=== PATIENT | female | born 1980 | race Caucasian/White ===

== ENCOUNTER → 2016-06-11 | Outpatient (CLI) | payer MEDICAID ==
[~2016-06-11] MED LIST: ADDERALL20 MG PO; ALLEGRA ALLERG180 MG PO; LIDO2%GEL; NASONEX SPRAY17 GM NS; NEURONTIN100 MG/CAP PO; PROTONIX 40MG T40 MG PO; PROZAC 20MG20 MG PO; ROXICODONE 55 MG/TAB PO; SINGULAIR 110 MG/TAB PO; SYNTHROID0.175 MG PO; VALTREX1 GM PO
== END ==
LOC: BHSO 09:24
DX: F90.0 Attention-deficit hyperactivity disorder, predominantly inattentive type (principal)

== ENCOUNTER → 2016-08-07 | Outpatient (CLI) | payer MEDICAID | LOC: BHSO 09:04 | DX: F33.41 Major depressive disorder, recurrent, in partial remission (principal) ==

== ENCOUNTER → 2016-10-07 | Outpatient (CLI) | payer MEDICAID | LOC: BHSO 09:08 | DX: F90.0 Attention-deficit hyperactivity disorder, predominantly inattentive type (principal) ==

== ENCOUNTER → 2016-12-08 | Outpatient (CLI) | payer MEDICAID | LOC: BHSO 11:23 | DX: F90.0 Attention-deficit hyperactivity disorder, predominantly inattentive type (principal) ==

== ENCOUNTER → 2017-02-10 | Outpatient (CLI) | payer MEDICAID | LOC: BHSO 09:13 | DX: F90.0 Attention-deficit hyperactivity disorder, predominantly inattentive type (principal) ==

== ENCOUNTER → 2017-05-06 | Outpatient (CLI) | payer MEDICAID | LOC: BHSO 09:22 | DX: F90.0 Attention-deficit hyperactivity disorder, predominantly inattentive type (principal) ==

== ENCOUNTER → 2017-07-06 | Outpatient (CLI) | payer MEDICAID | LOC: BHSO 11:41 | DX: F90.0 Attention-deficit hyperactivity disorder, predominantly inattentive type (principal) | CPT/HCPCS: G0463 ==

== ENCOUNTER → 2017-08-07 | Outpatient (CLI) | payer MEDICAID | LOC: BHSO 10:15 | DX: F90.0 Attention-deficit hyperactivity disorder, predominantly inattentive type (principal) | CPT/HCPCS: G0463 ==

== ENCOUNTER → 2018-03-31 | Outpatient (CLI) | payer SELFPAY | LOC: BHSO 11:43 | DX: F90.0 Attention-deficit hyperactivity disorder, predominantly inattentive type (principal) | CPT/HCPCS: G0463 ==

== ENCOUNTER 2018-05-25 22:50 | Emergency (ER) | payer SELFPAY ==
[~2018-05-25] VITALS: Ht 167 cm; Wt 97.7 kg
[2018-05-25 23:00] VITALS: BP 130/84; PULSE 98; TEMP 97.2
== END 2018-05-26 00:43 | disposition left against medical advice (07) ==
LOC: COL.ER 22:50
DX: R19.7 Diarrhea, unspecified (principal); R11.10 Vomiting, unspecified

== ENCOUNTER → 2018-07-14 | Outpatient (CLI) | payer SELFPAY | LOC: BHSO 11:38 | DX: F90.0 Attention-deficit hyperactivity disorder, predominantly inattentive type (principal) | CPT/HCPCS: G0463 ==

== ENCOUNTER → 2019-01-28 | Outpatient (CLI) | payer SELFPAY | LOC: BHSO 10:44 | DX: F90.0 Attention-deficit hyperactivity disorder, predominantly inattentive type (principal) | CPT/HCPCS: G0463 ==

== ENCOUNTER → 2019-03-03 | Outpatient (CLI) | payer SELFPAY | LOC: BHSO 15:04 | DX: F90.0 Attention-deficit hyperactivity disorder, predominantly inattentive type (principal) | CPT/HCPCS: G0463 ==

== ENCOUNTER → 2019-04-07 | Outpatient (CLI) | payer SELFPAY | LOC: BHSO 15:48 | DX: F90.0 Attention-deficit hyperactivity disorder, predominantly inattentive type (principal) | CPT/HCPCS: G0463 ==

== ENCOUNTER → 2019-10-13 | Outpatient (CLI) | payer SELFPAY | LOC: BHSO 16:20 | DX: F33.41 Major depressive disorder, recurrent, in partial remission (principal) | CPT/HCPCS: G0463 ==

== ENCOUNTER 2021-04-11 15:00 | Day surgery (SDC) | payer OTHER ==
[~2021-04-11] VITALS: Ht 167.6 cm; Wt 103.5 kg
[2021-04-11] MEDS ORDERED: ADDERALL20 MG PO (16:37)
[2021-04-11] MEDS ORDERED: ADDERALL XR20 MG PO (16:38)
[2021-04-11] MEDS ORDERED: WELLBUTRIN XL300 M1 PO (16:40)
[2021-04-11] MEDS ORDERED: CATAPRES 0.1MG0.1 MG PO (16:42)
[2021-04-11] MEDS ORDERED: CYMBALTA 60MG60 MG PO (16:42)
[2021-04-11] MEDS ORDERED: LEVOXYL0.2 MG PO (16:43)
[2021-04-11] MEDS ORDERED: LITHIUM 30300 MG/CAP PO (16:44)
[2021-04-11] MEDS ORDERED: COZAAR 50MG50 MG/TAB PO (16:44)
[2021-04-11] MEDS ORDERED: ONE-A-DAY ESSE1 EACH PO (16:45)
[2021-04-11] MEDS ORDERED: PROTONIX 40MG T40 MG PO ×2 (16:45→16:46)
[2021-04-11] MEDS ORDERED: INDERAL 10MG10 MG PO (16:46)
[2021-04-11] MEDS ORDERED: VITAMIN D31000 I1 PO (16:48)
[2021-04-11] MEDS ORDERED: XYZAL5 MG PO (16:48)
[2021-04-11 17:06] VITALS: BP 130/81; PULSE 82; TEMP 98.2
[2021-04-11 18:44] VITALS: BP 113/79; PULSE 78; TEMP 976
[2021-04-11 18:59] VITALS: BP 113/80; PULSE 82; TEMP 97.7
[2021-04-11] MEDS ORDERED: NORCO 325 MG-7.1 TAB PO (19:00)
[2021-04-11 19:14] VITALS: BP 119/88; PULSE 86; TEMP 97.8
[2021-04-11 19:29] VITALS: BP 119/75; PULSE 86; TEMP 97.8
[2021-04-11 19:59] VITALS: BP 118/74; PULSE 88; TEMP 97.5
--- NOTE | 2021-04-11 20:27 | NUR ---
Patient arrived to floor at approximately 1844. Denies pain and discomfort. Patient post-op VS WNL. Able to eat, drink, and go to the bathroom. Discharge paperwork completed. Left facility at this time. Voices no questions, needs, or concerns at this time.
== END 2021-04-11 20:27 | disposition home or self-care (01) ==
LOC: SDCO 15:00 → SURG 19:00 → SDCO 20:27
DX: S02.2XXA Fracture of nasal bones, initial encounter for closed fracture (principal); H69.83 Other specified disorders of Eustachian tube, bilateral; K21.9 Gastro-esophageal reflux disease without esophagitis; J30.9 Allergic rhinitis, unspecified; I10 Essential (primary) hypertension; E03.9 Hypothyroidism, unspecified; G47.10 Hypersomnia, unspecified; G47.9 Sleep disorder, unspecified; F41.9 Anxiety disorder, unspecified; F31.9 Bipolar disorder, unspecified; Z79.890 Hormone replacement therapy; Z79.899 Other long term (current) drug therapy
CPT/HCPCS: OP; J2250; J2704; J2765; J3010; J7120